=== PATIENT | male | born 1970 | race Caucasian/White ===

== ENCOUNTER 2018-02-11 16:13 | Emergency (ER) | payer OTHER ==
[2018-02-11] MEDS ORDERED: Sodium Chloride 0.9% 1,000 ML IV ONE (16:30)
[2018-02-11] MEDS ORDERED: Ondansetron 4 MG/2 ML SDV IVPUSH ONE (16:48)
[2018-02-11] MEDS ORDERED: Pantoprazole 40 MG Vial IVPUSH ONE (16:48)
[2018-02-11] MEDS ORDERED: Ketorolac 30 MG/ML SDV IVPUSH ONE (16:48)
[2018-02-11 17:19] LABS: CHLORIDE,CL 104 mmol/L (98-107); SODIUM,NA 140 mmol/L (136-148)
--- NOTE | 2018-02-11 18:53 | EDM.PDOC ---
ED HPI GENERAL MEDICAL PROBLEM - General Chief Complaint: Abdominal Pain Stated Complaint: STOMACH HURTS Time Seen by Provider: 02/11/18 18:48 Source of Information: Reports: Patient - History of Present Illness INITIAL COMMENTS - FREE TEXT/NARRATIVE: HISTORY AND PHYSICAL: History of present illness: A shunt presents with abdominal pain since noon today after eating lunch cupcakes, rates 9 out of 10 nonradiating some nausea and vomiting this has resolved prior to arrival no current fever nausea vomiting chills sweats no chest pain shortness breath headache dizziness palpitation no bowel or urine symptoms--patient has had similar symptoms over the last 6 months Denies chronic illness or disease [] Review of systems: As per history of present illness and below otherwise all systems reviewed and negative. Past medical history: As per history of present illness and as reviewed below otherwise noncontributory. Surgical history: As per history of present illness and as reviewed below otherwise noncontributory. Social history: No reported history of drug or alcohol abuse. Family history: As per history of present illness and as reviewed below otherwise noncontributory. Physical exam: HEENT: Atraumatic, normocephalic, pupils reactive, negative for conjunctival pallor or scleral icterus, mucous membranes moist, throat clear, neck supple, nontender, trachea midline. Lungs: Clear to auscultation, breath sounds equal bilaterally, chest nontender. Heart: S1S2, regular, negative for clicks, rubs, or JVD. Abdomen: Soft, nondismild tenderness on deep palpationNegative for masses or hepatosplenomegaly. Negative for costovertebral tenderness. Pelvis: Stable nontender. Genitourinary: Deferred. Rectal: Deferred. Extremities: Atraumatic, negative for cords or calf pain. Neurovascular unremarkable. Neuro: Awake, alert, oriented. Cranial nerves II through XII unremarkable. Cerebellum unremarkable. Motor and sensory unremarkable throughout. Exam nonfocal. Diagnostics: [ CBC CMP troponin lipase EKG Ultrasound right upper quadrant ] Therapeutics: [1 L normal saline Toradol 30 mg IV 8 mg Zofran IV Symptoms resolved 0-10 pain with above [place] Cipro Zofran ] Impression: [ biliary colic ] Definitive disposition and diagnosis as appropriate pending reevaluation and review of above. Right Upper Abdominal Pain Score (Numeric/FACES): 9 - Related Data Allergies Allergy/AdvReac Type Severity Reaction Status Date / Time No Known Allergies Allergy Verified 02/11/18 16:33 Home Meds: Home Meds . [No Known Home Meds] 02/11/18 [History] Past Medical History Respiratory History: Reports: Pneumonia, Recurrent - Infectious Disease History Infectious Disease History: Reports: None Social & Family History - Tobacco Use Smoking Status *Q: Current Every Day Smoker Years of Tobacco use: 15 Packs/Tins Daily: 1.5 - Caffeine Use Caffeine Use: Reports: Coffee, Soda - Recreational Drug Use Recreational Drug Use: No ED ROS GENERAL - Review of Systems Review Of Systems: See Below ED EXAM, GENERAL - Physical Exam Exam: See Below Course - Vital Signs Last Recorded V/S: Last Vital Signs Temp 96.6 F 02/11/18 16:33 Pulse 50 L 02/11/18 16:33 Resp 18 02/11/18 16:33 BP 137/82 02/11/18 16:33 Pulse Ox 99 02/11/18 16:33 - Orders/Labs/Meds Orders: Active Orders 24 hr Category Date Time Status EKG 12 Lead [EKG Documentation Completion] [RC] STAT Care 02/11/18 16:19 Active Abdomen Ltd [US] Stat Exams 02/11/18 16:49 Taken UA W/MICROSCOPIC [URIN] Stat Lab 02/11/18 18:35 Received Labs: Laboratory Tests 02/11/18 02/11/18 Range/Units 16:40 16:40 WBC 18.29 H (4.0-11.0) K/uL RBC 5.01 (4.50-5.90) M/uL Hgb 15.7 (13.0-17.0) g/dL Hct 43.3 (38.0-50.0) % MCV 86.4 (80.0-98.0) fL MCH 31.3 (27.0-32.0) pg MCHC 36.3 (31.0-37.0) g/dL RDW Std Deviation 43.0 (28.0-62.0) fl RDW Coeff of Jadiel 14 (11.0-15.0) % Plt Count 139 L (150-400) K/uL MPV 11.70 (7.40-12.00) fL Neut % (Auto) 91.3 H (48.0-80.0) % Lymph % (Auto) 6.6 L (16.0-40.0) % Baker % (Auto) 1.9 (0.0-15.0) % Eos % (Auto) 0.1 (0.0-7.0) % Baso % (Auto) 0.1 (0.0-1.5) % Neut # (Auto) 16.7 H (1.4-5.7) K/uL Lymph # (Auto) 1.2 (0.6-2.4) K/uL Baker # (Auto) 0.4 (0.0-0.8) K/uL Eos # (Auto) 0.0 (0.0-0.7) K/uL Baso # (Auto) 0.0 (0.0-0.1) K/uL Nucleated RBC % 0.0 /100WBC Nucleated RBCs # 0 K/uL Sodium 140 (136-148) mmol/L Potassium 4.0 (3.5-5.1) mmol/L Chloride 104 (98-107) mmol/L Carbon Dioxide 28.1 (21.0-32.0) mmol/L BUN 14 (7.0-18.0) mg/dL Creatinine 1.1 (0.8-1.3) mg/dL Est Cr Clr Drug Dosing 72.68 mL/min Estimated GFR (MDRD) > 60.0 ml/min Glucose 156 H (74-106) mg/dL Calcium 9.3 (8.5-10.1) mg/dL Total Bilirubin 0.4 (0.2-1.0) mg/dL AST 16 (15-37) IU/L ALT 24 (14-63) IU/L Alkaline Phosphatase 114 (46-116) U/L Troponin I < 0.050 (0.000-0.056) ng/mL Total Protein 8.2 (6.4-8.2) g/dL Albumin 4.0 (3.4-5.0) g/dL Globulin 4.2 H (2.0-3.5) g/dL Albumin/Globulin Ratio 1.0 L (1.3-2.8) Lipase 124 (73-393) U/L Meds: Medications Discontinued Medications Generic Name Dose Route Start Last Admin Trade Name Freq PRN Reason Stop Dose Admin Sodium Chloride 1,000 mls @ 999 mls/hr 02/11/18 16:30 02/11/18 17:35 Normal Saline IV 02/11/18 17:30 999 mls/hr STAT ONE Administration Ketorolac Tromethamine 30 mg 02/11/18 16:48 02/11/18 17:40 Toradol IVPUSH 02/11/18 16:49 30 mg ONETIME ONE Administration Ondansetron HCl 8 mg 02/11/18 16:48 02/11/18 17:38 Zofran IVPUSH 02/11/18 16:49 8 mg ONETIME ONE Administration Pantoprazole Sodium 80 mg 02/11/18 16:48 02/11/18 17:43 Protonix Iv IVPUSH 02/11/18 16:49 80 mg .BOLUS ONE Administration Departure - Departure Time of Disposition: 18:50 Disposition: Home, Self-Care 01 Condition: Good Clinical Impression: Biliary colic - Discharge Information Referrals: PCP,None [Primary Care Provider] - Additional Instructions: Medication as prescribed Return if symptoms persist or worsen Plan diet as discussed avoiding greasy/fatty foods Follow-up with general surgeon call for appointment tomorrow to schedule appointment early next week [facility] - General Surgery [address], [address] [place] [address] The following information is given to patients seen in the emergency department who are being discharged to home. This information is to outline your options for follow-up care. We provide all patients seen in our emergency department with a follow-up referral. The need for follow-up, as well as the timing and circumstances, are variable depending upon the specifics of your emergency department visit. If you don't have a primary care physician on staff, we will provide you with a referral. We always advise you to contact your personal physician following an emergency department visit to inform them of the circumstance of the visit and for follow-up with them and/or the need for any referrals to a consulting specialist. The emergency department will also refer you to a specialist when appropriate. This referral assures that you have the opportunity for follow-up care with a specialist. All of these measure are taken in an effort to provide you with optimal care, which includes your follow-up. Under all circumstances we always encourage you to contact your private physician who remains a resource for coordinating your care. When calling for follow-up care, please make the office aware that this follow-up is from your recent emergency room visit. If for any reason you are refused follow-up, please contact the emergency department at and asked to speak to the emergency department charge nurse. - My Orders Last 24 Hours: My Active Orders 02/11/18 16:19 EKG 12 Lead [EKG Documentation Completion] [RC] STAT 02/11/18 16:49 Abdomen Ltd [US] Stat 02/11/18 18:35 UA W/MICROSCOPIC [URIN] Stat - Assessment/Plan Last 24 Hours: My Active Orders 02/11/18 16:19 EKG 12 Lead [EKG Documentation Completion] [RC] STAT 02/11/18 16:49 Abdomen Ltd [US] Stat 02/11/18 18:35 UA W/MICROSCOPIC [URIN] Stat
--- NOTE | 2018-02-12 15:06 | US ---
EXAM DATE: 02/11/18 PATIENT'S AGE: 47 Patient: ALONDRA PICHARDO Facility: [place], [place] Site . Site : 1970 Study: US Abdomen [id number]/[id number] 5:31:55 PM Ordering Physician: Susan Barreto Final Report: INDICATION: Pain TECHNIQUE: Ultrasound abdomen limited. Sonographic images of the right upper quadrant were obtained using valentino-scale and color Doppler images. COMPARISON: None FINDINGS: Liver: Normal in size and echotexture. The left lobe is partially obscured. No masses. No intrahepatic biliary dilatation. Gallbladder: Multiple non shadowing gallstones and possible sludge. Normal wall thickness. No pericholecystic fluid. Common bile duct: 6 mm. Pancreas: Not well visualized. Right kidney: 10.7 cm. Normal echotexture and cortex. No masses, stones, or hydronephrosis. Vasculature: Proximal abdominal aorta and IVC are normal. IMPRESSION: Multiple gallstones and possible sludge in an otherwise normal-appearing gallbladder. Normal common bile duct. Dictated by Varun Duong MD @ 02/11/2018 6:31:21 PM Dictated by: Varun Duong MD @ 02/11/2018 18:31:26 (Electronic Signature) Report Signed by Proxy. AZUL
== END 2018-02-11 19:31 | disposition home or self-care (01) ==
LOC: MW.ED 16:13
DX: K80.70 Calculus of gallbladder and bile duct without cholecystitis without obstruction (principal); F17.210 Nicotine dependence, cigarettes, uncomplicated
CPT/HCPCS: 36415; 76705; 80053; 81001; 83690; 84484; 85025; 93005; 96361; 96374; 96375; 99284; C9113; J1885; J2405; J7040; 99283